=== PATIENT | female | born 1975 | race African-American/Black ===

== ENCOUNTER 2017-12-22 19:17 | Emergency (ER) | payer MEDICAID ==
[~2017-12-22] VITALS: Ht 167.6 cm; Wt 72.0 kg
[2017-12-22] MEDS ORDERED: SODIUM CHLORIDE 0.9% 1,000 ML IV ONE (19:28)
[2017-12-22] MEDS ORDERED: LEVETIRACETAM 500MG PREMIX 100 ML IV ONE (19:30)
[2017-12-22] MEDS ORDERED: LORAZEPAM 2MG/ML CPJ IV ONE (19:30)
[2017-12-22 20:24] LABS: BASOPHILS % 1.2 % (0.0-2.0); EOSINOPHILS % 2.6 % (0.0-5.0); HEMOGLOBIN. 10.3 g/dL (12.0-16.0); LYMPHOCYTES % 53.7 % (20.0-50.0); MEAN CORPUSCULAR VOLUME 77.2 fL (81.0-99.0); MEAN PLATELET VOLUME 7.2 fl (7.4-10.4); MONOCYTES % 14.4 % (2.0-8.0); NEUTROPHILS % 28.1 % (40.0-76.0); PLATELET 353 x1000/uL (130-400); RED BLOOD CELL COUNT 4.27 mill/uL (4.2-5.4); RED CELL DISTRIBUTION WIDTH 20.2 % (11.6-14.6)
[2017-12-22 20:28] LABS: INR 1.1
[2017-12-22 20:32] LABS: CHLORIDE 109 mEq/L (98-107)
[2017-12-22 20:43] LABS: CREATINE KINASE 304 IU/L (26-192)
[2017-12-22] MEDS ORDERED: CEFTRIAXONE 1 G PREMIX 50 ML IV NR (20:45)
[2017-12-22] MEDS ORDERED: SODIUM CHLORIDE 0.9% 1000ML BAG (SEPSIS BOLUS) IV ONE (20:45)
[2017-12-22] MEDS ORDERED: VANCOMYCIN 1 G PREMIX 200 ML IV NR (20:45)
[2017-12-22] MEDS ORDERED: KCL 20MEQ/100ML PREMIX 100 ML IV NR (20:45)
[2017-12-22 20:46] LABS: CARBAMAZEPINE < 0.5 ug/mL (4-12); ETHANOL BLOOD 344 mg/dL; PHENOBARBITAL < 2.1 ug/mL (15.0-40.0); VALPROIC ACID < 3.0 ug/mL (50-100)
[2017-12-22] MEDS ORDERED: SODIUM CHLORIDE 0.9% 2,160 ML IV SCH (21:00)
[2017-12-22] MEDS ORDERED: KCL 20MEQ/100ML PREMIX 100 ML IV ONE (23:00)
[2017-12-22] MEDS ORDERED: ONDANSETRON HCL 4MG/2ML INJ IV PRN (23:00)
[2017-12-22] MEDS ORDERED: DOCUSATE SODIUM 100MG CAPSULE PO PRN (23:00)
[2017-12-22] MEDS ORDERED: KETOROLAC 15MG/ML VIAL IV PRN (23:00)
[2017-12-22] MEDS ORDERED: ENOXAPARIN 40MG/0.4ML SYR SUBCUT SCH (23:00)
[2017-12-22] MEDS ORDERED: MAGNESIUM/ALUMINUM HYDROXIDE/SIMETHICONE 30ML UDC PO PRN (23:00)
[2017-12-22] MEDS ORDERED: IPRATROPIUM/ALBUTEROL 0.5-3(2.5)MG/3ML NEB INH PRN (23:00)
[2017-12-22] MEDS ORDERED: GUAIFENESIN 200MG/10ML SUGAR FREE UDC PO PRN (23:00)
[2017-12-22] MEDS ORDERED: CLONIDINE 0.1MG TABLET PO PRN (23:00)
[2017-12-22] MEDS ORDERED: NA PHOS,M-B/NA PHOS,DI-BA ENEMA 118ML PR PRN (23:00)
[2017-12-22] MEDS ORDERED: DIPHENHYDRAMINE 50MG/ML VIAL IV PRN (23:00)
[2017-12-22] MEDS ORDERED: LORAZEPAM 2MG/ML CPJ IV PRN (23:00)
[2017-12-22] MEDS ORDERED: ACETAMINOPHEN 325MG TABLET PO PRN (23:00)
[2017-12-22] MEDS ORDERED: ZOLPIDEM TARTRATE 5MG TABLET PO PRN (23:00)
[2017-12-22] MEDS ORDERED: NITROGLYCERIN 0.4MG TABLET SL SL PRN (23:00)
[2017-12-23] MEDS ORDERED: KCL 20MEQ/100ML PREMIX 100 ML IV NR (03:45)
[2017-12-23] MEDS ORDERED: MVI, ADULT NO.1 10 ML, FOLIC ACID 1 MG, THIAMINE HCL 100 MG in SODIUM CHLORIDE 0.9% 1,0... IV NR ×4 (04:00)
[2017-12-23] MEDS ORDERED: FAMOTIDINE 20MG/2ML VIAL IV SCH (09:00)
[2017-12-23] MEDS ORDERED: METOPROLOL TARTRATE 25MG TABLET PO SCH (09:00)
[2017-12-23 10:43] VITALS: BP 150/93
[2018-10-04] MEDS ORDERED: L25 PO (13:24)
[2018-10-04] MEDS ORDERED: PANT40TA4 MT (13:24)
[2018-10-04] MEDS ORDERED: AMLO5TAB88 PO (13:24)
== END 2017-12-23 12:24 | disposition home or self-care (01) ==
LOC: EDBD 19:17 → ER 19:17 → EDBEDREQSVC 22:26 → EDBEDREQ 22:26 → CANBEDREQ 12-23 11:59 → ER 12-23 12:24
DX: T51.0X1A Toxic effect of ethanol, accidental (unintentional), initial encounter (principal); R56.9 Unspecified convulsions; E87.2 Acidosis; E87.6 Hypokalemia; D72.819 Decreased white blood cell count, unspecified; E72.20 Disorder of urea cycle metabolism, unspecified; D50.9 Iron deficiency anemia, unspecified; R41.0 Disorientation, unspecified
CPT/HCPCS: 36415; 70450; 71045; 72125; 80053; 80156; 80165; 80184; 80185; 82140; 82550; 83036; 83605; 84443; 84484; 85025; 85610; 87040; 96365; 96366; 96367; 96368; 96375; 99291; G0482; J0696; J1953; J2060; J2405; J3370; J3411; J3480; J3490; J7030

== ENCOUNTER 2018-03-04 10:51 | Emergency (ER) | payer MEDICAID ==
[~2018-03-04] VITALS: Ht 162.6 cm; Wt 60.0 kg
[2018-03-04] MEDS ORDERED: SODIUM CHLORIDE 0.9% 1,000 ML IV ONE ×2 (11:44→15:54)
[2018-03-04 12:12] LABS: BASOPHILS % 0.7 % (0.0-2.0); EOSINOPHILS % 0.8 % (0.0-5.0); HEMATOCRIT. 32.2 % (36.0-48.0); HEMOGLOBIN. 10.5 g/dL (12.0-16.0); LYMPHOCYTES % 35.4 % (20.0-50.0); MEAN CORPUSCULAR HEMOGLOBIN 25.8 pg (28.0-32.0); MEAN CORPUSCULAR VOLUME 79.2 fL (81.0-99.0); MEAN PLATELET VOLUME 7.6 fl (7.4-10.4); MONOCYTES % 7.5 % (2.0-8.0); NEUTROPHILS % 55.6 % (40.0-76.0); PLATELET 370 x1000/uL (130-400); RED BLOOD CELL COUNT 4.06 mill/uL (4.2-5.4); RED CELL DISTRIBUTION WIDTH 20.6 % (11.6-14.6)
[2018-03-04 12:16] LABS: CHLORIDE 113 mEq/L (98-107)
[2018-03-04 12:25] LABS: HCG SCREEN NEGATIVE
[2018-03-04 12:28] LABS: ETHANOL BLOOD 364 mg/dL
[2018-03-04] MEDS ORDERED: IBUPROFEN 600MG TABLET PO ONE (12:45)
[2018-03-04 15:09] LABS: *AMPHETAMINES SCREEN URINE NEGATIVE (NEGATIVE); *BARBITURATES SCREEN URINE NEGATIVE (NEGATIVE); *BENZODIAZEPINES SCREEN URINE NEGATIVE (NEGATIVE); METHADONE URINE SCREEN NEGATIVE (NEGATIVE); OPIATES URINE SCREEN NEGATIVE (NEGATIVE); PHENCYCLIDINE URINE SCREEN NEGATIVE (NEGATIVE)
[2018-03-04 15:11] LABS: *COCAINE SCREEN URINE PRESUMTIVE POSITIVE (NEGATIVE)
[2018-03-04 15:12] LABS: CANNABINOID URINE SCREEN PRESUMTIVE POSITIVE (NEGATIVE)
[2018-03-04] MEDS ORDERED: ACETAMINOPHEN 325MG TABLET PO ONE (19:30)
[2018-03-04 19:35] VITALS: BP 124/63
== END 2018-03-04 19:40 | disposition home or self-care (01) ==
LOC: ER 11:08
DX: S22.32XA Fracture of one rib, left side, initial encounter for closed fracture (principal); T40.5X1A Poisoning by cocaine, accidental (unintentional), initial encounter; F10.129 Alcohol abuse with intoxication, unspecified; Z88.0 Allergy status to penicillin; Y08.89XA Assault by other specified means, initial encounter; Y93.89 Activity, other specified; Y92.89 Other specified places as the place of occurrence of the external cause; Y99.8 Other external cause status
CPT/HCPCS: 36415; 70450; 71045; 71100; 72170; 80053; 80305; 84703; 85025; 93005; 96360; 96361; 99285; G0482; J7030; Z7610

== ENCOUNTER 2018-09-28 12:20 | Emergency (ER) | payer MEDICAID ==
[~2018-09-28] VITALS: Ht 165.1 cm; Wt 75.0 kg
[2018-09-28 15:28] LABS: HEMATOCRIT. 28.9 % (36.0-48.0); HEMOGLOBIN. 9.6 g/dL (12.0-16.0); LYMPHOCYTES % 42.8 % (20.0-50.0); MEAN CORPUSCULAR HEMOGLOBIN 28.5 pg (28.0-32.0); MEAN CORPUSCULAR VOLUME 86.1 fL (81.0-99.0); MEAN PLATELET VOLUME 7.7 fl (7.4-10.4); MONOCYTES % 10.9 % (2.0-8.0); NEUTROPHILS % 42.3 % (40.0-76.0); PLATELET 299 x1000/uL (130-400); RED BLOOD CELL COUNT 3.36 mill/uL (4.2-5.4)
[2018-09-28 15:34] LABS: INR 1.1; PROTHROMBIN TIME 10.8 sec (9.1-11.1)
[2018-09-28 15:37] LABS: CHLORIDE 105 mEq/L (98-107)
[2018-09-28 16:14] LABS: CLARITY URINE CLEAR (CLEAR); COLOR URINE YELLOW (YELLOW); KETONES URINE NEGATIVE (NEGATIVE); LEUKOCYTE ESTERASE URINE NEGATIVE (NEGATIVE); NITRITE URINE NEGATIVE (NEGATIVE); OCCULT BLOOD URINE NEGATIVE (NEGATIVE); PH URINE 5.5 (4.5-8.0); PROTEIN URINE NEGATIVE (NEGATIVE); SPECIFIC GRAVITY URINE 1.015 (1.005-1.030); UROBILINOGEN URINE 0.2 E.U./dL (0.2-1.0)
[2018-09-28] MEDS ORDERED: ONDANSETRON 4MG ODT PO ONE (16:15)
[2018-09-28] MEDS ORDERED: HYDROCODONE/ACETAMINOPHEN 5/325MG TABLET PO ONE (16:15)
[2018-09-28 16:40] VITALS: BP 121/60
[2018-10-04] MEDS ORDERED: PANT40TA4 MT (13:24)
[2018-10-04] MEDS ORDERED: AMLO5TAB88 PO (13:24)
[2018-10-04] MEDS ORDERED: L25 PO (13:24)
== END 2018-09-28 16:41 | disposition home or self-care (01) ==
LOC: ER 13:24
DX: R10.30 Lower abdominal pain, unspecified (principal); K62.5 Hemorrhage of anus and rectum; K64.4 Residual hemorrhoidal skin tags; F12.10 Cannabis abuse, uncomplicated; R03.0 Elevated blood-pressure reading, without diagnosis of hypertension; Z88.0 Allergy status to penicillin
CPT/HCPCS: 36415; 80053; 81003; 81025; 85025; 85610; 99284; Q0162

== ENCOUNTER 2018-10-06 17:53 | Emergency (ER) | payer MEDICAID ==
[~2018-10-06] VITALS: Ht 167.6 cm; Wt 68.0 kg
[~2018-10-06 17:53] MED LIST: AMLO5TAB88 PO; L25 PO; PANT40TA4 MT
[2018-10-06] MEDS ORDERED: FOLIC ACID 1 MG, THIAMINE HCL 100 MG, MVI, ADULT NO.1 10 ML in DEXTROSE 5% WATER 1,000 ML IV ONE ×4 (19:15)
[2018-10-06 19:32] LABS: BASOPHILS % 1.3 % (0.0-2.0); EOSINOPHILS % 2.1 % (0.0-5.0); HEMATOCRIT. 29.4 % (36.0-48.0); HEMOGLOBIN. 9.6 g/dL (12.0-16.0); LYMPHOCYTES % 48.9 % (20.0-50.0); MEAN CORPUSCULAR HEMOGLOBIN 28.5 pg (28.0-32.0); MEAN CORPUSCULAR VOLUME 87.4 fL (81.0-99.0); MONOCYTES % 10.2 % (2.0-8.0); NEUTROPHILS % 37.5 % (40.0-76.0); PLATELET 330 x1000/uL (130-400); RED BLOOD CELL COUNT 3.36 mill/uL (4.2-5.4); RED CELL DISTRIBUTION WIDTH 20.7 % (11.6-14.6)
[2018-10-06 19:36] LABS: CHLORIDE 108 mEq/L (98-107)
[2018-10-06 19:42] LABS: AMMONIA 79 uMol/L (<32)
[2018-10-06 19:43] LABS: ETHANOL BLOOD 292 mg/dL
[2018-10-06 19:45] LABS: CLARITY URINE CLEAR (CLEAR); COLOR URINE YELLOW (YELLOW); KETONES URINE NEGATIVE (NEGATIVE); LEUKOCYTE ESTERASE URINE NEGATIVE (NEGATIVE); NITRITE URINE NEGATIVE (NEGATIVE); OCCULT BLOOD URINE NEGATIVE (NEGATIVE); PROTEIN URINE NEGATIVE (NEGATIVE); SPECIFIC GRAVITY URINE 1.001 (1.005-1.030); UROBILINOGEN URINE 0.2 E.U./dL (0.2-1.0)
[2018-10-06 20:04] LABS: *AMPHETAMINES SCREEN URINE NEGATIVE (NEGATIVE); *BARBITURATES SCREEN URINE NEGATIVE (NEGATIVE)
[2018-10-06 20:05] LABS: METHADONE URINE SCREEN NEGATIVE (NEGATIVE); OPIATES URINE SCREEN NEGATIVE (NEGATIVE); PHENCYCLIDINE URINE SCREEN NEGATIVE (NEGATIVE)
[2018-10-06 20:08] LABS: *BENZODIAZEPINES SCREEN URINE PRESUMTIVE POSITIVE (NEGATIVE); *COCAINE SCREEN URINE PRESUMTIVE POSITIVE (NEGATIVE); CANNABINOID URINE SCREEN PRESUMTIVE POSITIVE (NEGATIVE)
[2018-10-06] MEDS ORDERED: ACETAMINOPHEN 325MG TABLET PO NR (23:00)
[2018-10-06 23:49] VITALS: BP 123/85
== END 2018-10-06 23:49 | disposition home or self-care (01) ==
LOC: ER 18:02
DX: S09.8XXA Other specified injuries of head, initial encounter (principal); R40.4 Transient alteration of awareness; F10.229 Alcohol dependence with intoxication, unspecified; F15.10 Other stimulant abuse, uncomplicated; F12.10 Cannabis abuse, uncomplicated; D64.9 Anemia, unspecified; E72.20 Disorder of urea cycle metabolism, unspecified; W10.1XXA Fall (on)(from) sidewalk curb, initial encounter; Y93.89 Activity, other specified; Y92.89 Other specified places as the place of occurrence of the external cause; Y99.8 Other external cause status; Y90.8 Blood alcohol level of 240 mg/100 ml or more; Z88.0 Allergy status to penicillin
CPT/HCPCS: 36415; 70450; 72125; 80053; 80305; 81003; 82140; 82962; 85025; 93005; 96365; 96366; 99285; G0482; J3411; J3490; J7070

== ENCOUNTER 2019-03-19 20:07 | Emergency (ER) | payer MEDICAID | END 2019-03-19 20:28 | disposition left against medical advice (07) | LOC: ER 20:07 | DX: Z53.21 Procedure and treatment not carried out due to patient leaving prior to being seen by health care provider (principal) ==